=== PATIENT | female | born 1955 | race Caucasian/White ===

== ENCOUNTER → 2018-04-23 | Outpatient (CLI) | payer BC ==
[~2018-04-23] MED LIST: LANS30CA63 PO; LISI-362 PO
--- NOTE | 2018-04-23 13:08 | RADIOLOGY IMAGING REPORT ---
FACILITY: [facility] PATIENT NAME: DONTE MALIK : [id number] MR: [id number]: [id number] EXAM DATE: [id number] ORDERING PHYSICIAN: GAGE MEHTA TECHNOLOGIST: Alayna Loyd PROCEDURE:BILATERAL DIGITAL SCREENING MAMMOGRAM WITH CAD ASSISTED INTERPRETATION & 3D TOMOSYNTHESIS COMPARISON:Prior mammograms 03/28/17, 03/20/16, 03/16/15, 03/15/14, 03/13/13, 03/11/12. INDICATIONS:SCREENING FINDINGS: A small amount of fibroglandular tissue is seen throughout the breasts. The parenchymal pattern has remained stable allowing for difference in mammographic technique & patient positioning. There is no evidence of malignant appearing mass, malignant appearing calcifications or other secondary sign of malignancy in either breast. DIAGNOSTIC CATEGORY 1--NEGATIVE. RECOMMENDATIONS: ROUTINE MAMMOGRAM AND CLINICAL EVALUATION. IMPRESSION: BIRADS 1: Negative. No significant abnormality is seen. Dictated by: Yamilex Mansfield M.D. on 04/23/2018 at 11:09 Transcribed by: PRIYA on 04/23/2018 at 11:16 Approved by: Yamilex Mansfield M.D. on 04/23/2018 at 13:06 [facility]
== END ==
LOC: MAMO 02:43
PROVIDERS: ATTEND Physician Assistant
DX: Z12.31 Encounter for screening mammogram for malignant neoplasm of breast (principal)
CPT/HCPCS: 77063; 77067